=== PATIENT | female | born 1940 | race Asian ===

== ENCOUNTER 2018-11-10 13:27 | Emergency (ER) | payer MEDICARE, OTHER ==
[~2018-11-10] VITALS: Wt 70.0 kg
[~2018-11-10 13:27] MED LIST: ASPI-817 PO; CELE200C PO; LIPA1CAP6 PO; NEXIUM PO; OLME1TAB31 PO
[2018-11-10 13:30] VITALS: BP 138/64; PULSE 95; RESP 18
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
[2018-11-10] MEDS ORDERED: ACETAMINOPHEN 325 MG TAB PO ONE (14:30)
[2018-11-10] MEDS ORDERED: IBUP-1561 PO (14:59)
[2018-11-10] MEDS ORDERED: ACET325T33 PO (14:59)
== END 2018-11-10 15:39 | disposition home or self-care (01) ==
LOC: FTE 13:27
DX: S29.002A Unspecified injury of muscle and tendon of back wall of thorax, initial encounter (principal); M80.88XA Other osteoporosis with current pathological fracture, vertebra(e), initial encounter for fracture; S60.222A Contusion of left hand, initial encounter; I10 Essential (primary) hypertension; V49.50XA Passenger injured in collision with unspecified motor vehicles in traffic accident, initial encounter; Z79.82 Long term (current) use of aspirin
CPT/HCPCS: 72072; 99284